=== PATIENT | male | born 1945 | race Caucasian/White ===

== ENCOUNTER 2019-10-01 11:50 | Day surgery (SDC) | payer MEDICARE, BC ==
[~2019-10-01] VITALS: Ht 188 cm; Wt 102.1 kg
[2019-10-01] VITALS (12 sets, daily range): BP systolic 103–142; BP diastolic 45–73
[~2019-10-01 11:50] MED LIST: CEFD300C21 PO; DIGO-16 PO; DOCUMENT DATE & TIME OF BETA-BLOCKER PO ONE; FLUD0.1T PO; METO-411 PO; WARF3TAB56 PO; WARF4TAB69 PO; cefazolin/dext.iso 2gm/100ml 100 ML IV ONE; famotidine 20mg tablet PO ONE; ringers solution, lacted 1,000 ML IV SCH
[2019-10-01] MEDS ORDERED: HYDROcodone/acetaminophen 10/325mg tab PO ONE ×2 (13:05→13:15)
[2019-10-01 13:10] LABS: BASOPHILS # (AUTO) 0.1 X10'3 (0-0.2); BASOPHILS % (AUTO) 0.9 % (0-1); EOSINOPHILS # (AUTO) 0.2 X10'3 (0-0.9); EOSINOPHILS % (AUTO) 3.3 % (0-6); LYMPHOCYTES # (AUTO) 1.3 X10'3 (1.1-4.8); LYMPHOCYTES % (AUTO) 18.7 % (21-51); MEAN CORPUSCULAR HEMOGLOBIN 29.6 PG (27.0-31.0); MEAN CORPUSCULAR HGB CONC 33.1 g/dL (33.0-36.5); MEAN CORPUSCULAR VOLUME 89.5 FL (78-98); MEAN PLATELET VOLUME 7.1 FL (7.4-10.4); MONOCYTES # (AUTO) 0.5 X10'3 (0-0.9); MONOCYTES % (AUTO) 7.9 % (2-12); NEUTROPHILS # (AUTO) 4.7 X10'3 (1.8-7.7); NEUTROPHILS % (AUTO) 69.2 % (42-75); PRE OP HEMATOCRIT 36.5 % (42.0-52.0); PRE OP HEMOGLOBIN 12.1 g/dL (14.0-17.9); PRE OP PLATELET COUNT 249 X10'3 (140-440); RED BLOOD COUNT 4.07 X10'6 (4.70-6.10); RED CELL DISTRIBUTION WIDTH 19.3 % (11.5-14.5)
--- NOTE | 2019-10-01 13:20 | NUR ---
C/O PAIN. NORCO PO ORDERED PER DR LYNN PT TAKES AT HOME.
[2019-10-01] MEDS ORDERED: WARF-55 PO (13:24)
[2019-10-01 13:29] LABS: PRE OP PROTIME 15.7 SECONDS (9.0-12.0)
[2019-10-01 13:30] LABS: PRE OP INR 1.6 INR
[2019-10-01 13:33] LABS: ALBUMIN 2.6 G/DL (3.4-5.0); ALBUMIN/GLOBULIN RATIO 0.5 (1.1-1.5); ALKALINE PHOSPHATASE 127 IU/L (46-116); BLOOD UREA NITROGEN 17 MG/DL (7-18); BUN/CREATININE RATIO 21.8 (5.4-32.0); CALCIUM 8.3 MG/DL (8.5-10.1); CHLORIDE 103 MMOL/L (99-107); CREATININE 0.78 MG/DL (0.60-1.10); PRE OP ALT 12 U/L (30-65); PRE OP ANION GAP 8 (8-16); PRE OP AST 18 U/L (10-37); PRE OP BILIRUB, TOTAL 0.3 MG/DL (0.0-1.0); PRE OP GLUCOSE 123 MG/DL (70-104); PRE OP POTASSIUM 4.1 MMOL/L (3.4-5.1); PRE OP SODIUM 135 MMOL/L (135-145); TOTAL PROTEIN 8.3 G/DL (6.4-8.2); eGFR > 90 ML/MIN
[2019-10-01 13:34] LABS: ANISOCYTOSIS 2+; PLATELET ESTIMATE NORMAL
--- NOTE | 2019-10-01 14:30 | NUR ---
PT STATES ADEQUATE PAIN RELIEF POST NORCO PO, "ITS GOOD". NO CURRENT COMPLAINTS.
[2019-10-01] MEDS ORDERED: BUPIVAcaine/PF 2.5 mg/ml (0.25%) 30ml vial ONE (14:59)
[2019-10-01] MEDS ORDERED: LIDOcaine 1% 30ml preserv. free vial ONE (14:59)
[2019-10-01] MEDS ORDERED: ringers solution, lacted 1,000 ML IV SCH (15:01)
[2019-10-01] MEDS ORDERED: morphine 2 MG/ML inj. syringe IV PRN (15:05)
[2019-10-01] MEDS ORDERED: hydrALAZINE 20mg/ml inj. IV PRN (15:05)
[2019-10-01] MEDS ORDERED: labetalol 20mg/4ml (5mg/ml) syringe IV PRN (15:05)
[2019-10-01] MEDS ORDERED: ondansetron/PF 4mg/2ml inj IV PRN (15:05)
[2019-10-01] MEDS ORDERED: morphine 4 MG/ML inj SYRINge IV PRN (15:05)
[2019-10-01] MEDS ORDERED: fentaNYL/PF 50MCG/1 ML 2ML syringe IV PRN ×2 (15:05)
[2019-10-01] MEDS ORDERED: fentaNYL/PF 50MCG/1 ML 2ML syringe ONE (15:07)
[2019-10-01] MEDS ORDERED: MIDAZolam 5mg/5ml vial ONE (15:07)
--- NOTE | 2019-10-01 15:43 | NUR ---
Received from OR via , accompanied by Anesthesiologist DR SANTOS and report given by Anesthesiolgist. AWAKENS TO VOICE. VITALS STABLE. DRESSING DI. ALISSA PAIN.
[2019-10-01] MEDS ORDERED: HYDROcodone/acetaminophen 5mg/325mg tablet PO PRN (16:05)
--- NOTE | 2019-10-01 17:43 | NUR ---
AWAKE AND ORIENTED. VITALS STABLE. DRESSING DI. ALISSA PAIN. HOME WITH HIS SPOUSE AT THIS TIME.
== END 2019-10-01 17:43 | disposition home or self-care (01) ==
LOC: PAS 11:50
PROVIDERS: ATTEND Surgery
DX: E46 Unspecified protein-calorie malnutrition (principal); G82.20 Paraplegia, unspecified; I10 Essential (primary) hypertension; Z95.2 Presence of prosthetic heart valve; G89.4 Chronic pain syndrome; Z93.3 Colostomy status; Z98.890 Other specified postprocedural states; I48.91 Unspecified atrial fibrillation; Z79.899 Other long term (current) drug therapy
CPT/HCPCS: 36415; 43246; 80053; 85025; 85610; 85730; J2001; J2250; J3010; J3490; J7120; A4618; A6402; A7000; B4087

== ENCOUNTER 2020-07-14 11:07 | Outpatient (CLI) | payer MEDICARE, BC ==
[~2020-07-14] VITALS: Ht 188 cm; Wt 99.8 kg
[~2020-07-14 11:07] MED LIST changes: -DOCUMENT DATE & TIME OF BETA-BLOCKER PO ONE; +WARF-55 PO; -WARF3TAB56 PO; -cefazolin/dext.iso 2gm/100ml 100 ML IV ONE; -famotidine 20mg tablet PO ONE; -ringers solution, lacted 1,000 ML IV SCH
[2020-07-14] MEDS ORDERED: SERT50TA10 PO (12:27)
[2020-07-14] MEDS ORDERED: CHOL20004 PO (12:27)
[2020-07-14 12:43] LABS: BASOPHILS # (AUTO) 0.1 X10'3 (0-0.2); BASOPHILS % (AUTO) 0.6 % (0-1); EOSINOPHILS # (AUTO) 0.2 X10'3 (0-0.9); EOSINOPHILS % (AUTO) 2.6 % (0-6); LYMPHOCYTES # (AUTO) 1.3 X10'3 (1.1-4.8); LYMPHOCYTES % (AUTO) 13.9 % (21-51); MEAN CORPUSCULAR HEMOGLOBIN 30.4 PG (27.0-31.0); MEAN CORPUSCULAR HGB CONC 33.2 g/dL (33.0-36.5); MEAN CORPUSCULAR VOLUME 91.4 FL (78-98); MEAN PLATELET VOLUME 7.3 FL (7.4-10.4); MONOCYTES # (AUTO) 0.7 X10'3 (0-0.9); MONOCYTES % (AUTO) 7.1 % (2-12); NEUTROPHILS % (AUTO) 75.8 % (42-75); PRE OP HEMATOCRIT 37.4 % (42.0-52.0); PRE OP HEMOGLOBIN 12.4 g/dL (14.0-17.9); PRE OP PLATELET COUNT 330 X10'3 (140-440); RED BLOOD COUNT 4.09 X10'6 (4.70-6.10); RED CELL DISTRIBUTION WIDTH 18.1 % (11.5-14.5)
[2020-07-14 12:50] LABS: PRE OP PROTIME 24.5 SECONDS (9.0-12.0)
[2020-07-14 12:51] LABS: ALBUMIN 2.8 G/DL (3.4-5.0); ALBUMIN/GLOBULIN RATIO 0.5 (1.1-1.5); ALKALINE PHOSPHATASE 146 IU/L (46-116); BLOOD UREA NITROGEN 20 MG/DL (7-18); BUN/CREATININE RATIO 17.2 (5.4-32.0); CALCIUM 8.8 MG/DL (8.5-10.1); CHLORIDE 104 MMOL/L (99-107); CREATININE 1.16 MG/DL (0.60-1.10); PRE OP ALT 20 U/L (30-65); PRE OP ANION GAP 10 (8-16); PRE OP AST 17 U/L (10-37); PRE OP BILIRUB, TOTAL 0.3 MG/DL (0.0-1.0); PRE OP GLUCOSE 186 MG/DL (70-104); PRE OP SODIUM 137 MMOL/L (135-145); TOTAL CARBON DIOXIDE 22.7 MMOL/L (24-32); TOTAL PROTEIN 8.3 G/DL (6.4-8.2); eGFR 61 ML/MIN
[2020-07-14 12:58] LABS: PRE OP INR 2.5 INR
[2020-07-17] MEDS ORDERED: TEST75GE10 TOP (13:33)
[2020-07-17] MEDS ORDERED: LEVO500T89 PO (13:33)
[2020-07-17] MEDS ORDERED: NORepinephrine 8mg/ 250ml NS 250 ML IV ONE (23:03)
[2020-07-18] MEDS ORDERED: FLO0.1T PO (11:14)
[2020-07-18] MEDS ORDERED: WARF-65 PO (11:16)
[2020-07-19] MEDS ORDERED: ringers solution, lacted 1,000 ML IV SCH (05:00)
[2020-07-19] MEDS ORDERED: ceFAZolin 2gm in dextrose, iso 50 ML IV ONE (05:30)
[2020-07-19] MEDS ORDERED: famotidine 20mg tablet PO ONE (05:30)
[2020-07-19] MEDS ORDERED: DOCUMENT DATE & TIME OF BETA-BLOCKER PO ONE (05:30)
[2020-07-25 14:58] LABS: ABG HCO3 9.7 mmol/L (22.0-26.0); ABG OXYGEN SATURATION 94.3 % (94-97); ABG PCO2 (T) 48.3 mmHg (35.0-48.0); ABG PO2 (T) 97.8 mmHg (75.0-100.0); FCOHb 0.3 % (0.0-3.9); FLOW 4 L/min; FMetHb 0.3 % (0.0-1.5); FO2Hb 93.7 % (94-97); PATIENT TEMPERATURE 36.8; TOTAL HEMOGLOBIN 9.8 G/dl (14.0-18.0)
== END 2020-07-14 23:59 | disposition home or self-care (01) ==
LOC: PRE-OP 11:07 → EDSTATUS 07-19 12:00
PROVIDERS: ATTEND Surgery
DX: Z01.812 Encounter for preprocedural laboratory examination (principal); Z20.828 Contact with and (suspected) exposure to other viral communicable diseases; I48.91 Unspecified atrial fibrillation; N40.1 Benign prostatic hyperplasia with lower urinary tract symptoms; I10 Essential (primary) hypertension; Z79.01 Long term (current) use of anticoagulants; Z79.899 Other long term (current) drug therapy
CPT/HCPCS: 36415; 36430; 36600; 80053; 82803; 85018; 85025; 85610; 85730; 86885; 86900; 86901; 87081; 87635; J7120